=== PATIENT | male | born 1960 | race African-American/Black ===

== ENCOUNTER 2016-12-28 10:11 | Emergency (ER) | payer OTHER ==
[2016-12-28 10:16] VITALS: BP 150/106; PULSE 79; TEMP 97.5; BMI 27.7
--- NOTE | 2016-12-28 11:43 | PDOC ---
History of Present Illness - General Chief Complaint: Pain Stated Complaint: BILATERAL LEG PAIN Time Seen by Provider: 12/28/16 10:32 History Source: Patient Exam Limitations: No Limitations - History of Present Illness Initial Comments: 12/28/16 13:30 12/28/16 13:31 MY CHIEF COMPLAINT: RT. INNER THIGH PAIN FOR 4 DAYS HISTORY OF PRESENT ILLNESS: Pt. is a 56-year-old male with history of hypertension and hyperlipidemia repair of spinal scoliosis here today complaining of right medial proximal thigh pain 4 days. Patient reports pain occurs with any pressure on his right leg and is an 8 out of 10. Patient also reports that is difficult to get in and out of bed due to pain and right medial upper thigh. Patient denies any testicular pain or any bony prominence pain. Patient denies any back pain. 12/28/16 14:56 Timing/Duration: intermittent (WITH WALKING OR ANY PRESSURE ON RT. LEG FOR 4 DAYS) Severity: moderate Associated Symptoms: reports: denies symptoms Past History - Past Medical History Allergies/Adverse Reactions: Allergies Allergy/AdvReac Type Severity Reaction Status Date / Time No Known Allergies Allergy Verified 12/28/16 10:16 Home Medications: Ambulatory Orders Amlodipine Besylate 10 mg PO DAILY 12/28/16 Simvastatin 10 mg PO DAILY 12/28/16 Tamsulosin HCl [Flomax] 0.4 mg PO DAILY 12/28/16 HTN: Yes Hypercholesterolemia: Yes Other medical history: ? BPH - Psycho/Social/Smoking Cessation Hx Anxiety: No Suicidal Ideation: No Smoking History: Never smoked Substance Use Type: None Review of Systems - Review of Systems Able to Perform ROS?: Yes Constitutional: No: Symptoms Reported HEENTM: No: Symptoms Reported Respiratory: No: Symptoms reported Cardiac (ROS): No: Symptoms Reported ABD/GI: No: Symptoms Reported : No: Symptoms Reported Musculoskeletal: Yes: Muscle Pain (RT. UPPER MEDIAL THIGH FOR 4 DAYS ) Integumentary: No: Symptoms Reported Neurological: No: Symptoms reported *Physical Exam - Vital Signs Last Vital Signs Temp Pulse Resp BP Pulse Ox 97.5 F L 79 18 150/106 99 12/28/16 10:13 12/28/16 10:13 12/28/16 10:13 12/28/16 10:13 12/28/16 10:13 - Physical Exam General Appearance: Yes: Appropriately Dressed Respiratory/Chest: positive: Lungs Clear, Normal Breath Sounds. negative: Chest Tender, Respiratory Distress Cardiovascular: positive: Regular Rhythm, Regular Rate, S1, S2 Vascular Pulses: Dorsalis-Pedis (R): 4+ Male Genitalia: positive: normal genitalia. negative: discharge, testicular tenderness, testicular mass, epididymus tender, inguinal hernia, hernia Musculoskeletal: positive: Normal Inspection. negative: CVA Tenderness, CVA Tenderness (R), CVA Tenderness (L), Vertebral Tenderness Extremity: positive: Normal Capillary Refill, Normal Inspection, Tender ( MUSCULAR TENDERNESS RT. UPPER MEDIAL THIGH). negative: Normal Range of Motion ( RT. LEG WITH LATERAL MOVEMENT, FLEXION OF RT. UPPER LEG), Swelling Integumentary: positive: Normal Color Neurologic: positive: Alert, Normal Response, Motor Strength 5/5 (B/L LEGS ), Respond to painful stimul. negative: Numbness, Sensory Deficit Deep Tendon Reflexes: Ankle (R): 4+ (no induration noted ) Medical Decision Making - Medical Decision Making 12/28/16 14:33 Pt. is a 56-year-old male with history of hypertension and hyperlipidemia repair of spinal scoliosis here today complaining of right medial proximal thigh pain 4 days. Patient reports pain occurs with any pressure on his right leg and is an 8 out of 10. Patient also reports that is difficult to get in and out of bed due to pain and right medial upper thigh. Patient denies any testicular pain or any bony prominence pain. r/o carly abnormality rt. hip rt. medial muscle strain proximal thigh 12/28/16 14:57 PLAN: TORADOL 30 MG IM NOW XRAY RT. HIP MILD DEGENERATIVE CHANGES B/L HIPS, SOME SCLEROSIS OF PUBIC BONES AROUND SI JTS WHICH MAY REFLEXT OSTEITIS PUBIS, KATELYN OVERLYING THE LOWER SPINE PARTIALLY VISUALIZED . DR. PINON CRUTCHES GIVEN PT. INSTRUCTED NOT TO EXERCISE OR APPLY PRESSURE TO RT. LEG FOLLOW UP WITH ORTHOPEDIST 12/29/16 11:59 *DC/Admit/Observation/Transfer Diagnosis at time of Disposition: Muscle strain of right thigh Qualifiers: Encounter type: initial encounter Qualified Code(s): S76.911A - Strain of unspecified muscles, fascia and tendons at thigh level, right thigh, initial encounter - Discharge Dispostion Disposition: HOME Condition at time of disposition: Stable - Referrals Referrals: Sahil Payan MD [Primary Care Provider] - Nate Corrigan MD [Staff Physician] - - Patient Instructions Additional Instructions: NO EXERCISE OR APPLYING PRESSURE TO RT. LEG ELEVATE RIGHT LEG MUCH POSSIBLE FOLLOW UP WITH ORTHOPEDIST WITHIN THE NEXT FEW DAYS TAKE ADVIL OR ALEVE INSTRUCTED BY TASTE TESTER FOR PAIN NEEDED USE CRUTCHES FOR AMBULATION RETURN TO EMERGENCY ROOM IF SYMPTOMS WORSEN OR NEW SYMPTOMS DEVELOP PATIENT VOICED UNDERSTANDING OF DISCHARGE INSTRUCTIONS AND ALL QUESTIONS WERE ANSWERED
[2016-12-28] MEDS ORDERED: KETOROLAC TROMETHAMINE 60 MG/2 ML VIAL IM ONE (11:46)
[2016-12-28] MEDS ORDERED: KETOROLAC TROMETHAMINE 30 MG/1 ML VIAL ONE (11:53)
== END 2016-12-28 15:27 | disposition home or self-care (01) ==
LOC: JER 10:11
PROC: 3E0233Z Introduction of Anti-inflammatory into Muscle, Percutaneous Approach (ICD-10-PCS; principal; 2016-12-28)
DX: S76.811A Strain of other specified muscles, fascia and tendons at thigh level, right thigh, initial encounter (principal); X58.XXXA Exposure to other specified factors, initial encounter; Y93.89 Activity, other specified; Y92.018 Other place in single-family (private) house as the place of occurrence of the external cause; I10 Essential (primary) hypertension; E78.00 Pure hypercholesterolemia, unspecified
CPT/HCPCS: 73502-TC-RT; 96372; 99282-25

== ENCOUNTER 2021-03-05 04:46 | Day surgery (SDC) | payer OTHER ==
[2021-03-04 10:41] VITALS: BMI 24.9
[2021-03-05] MEDS ORDERED: LIDOCAINE HCL 1%, 10 MG/ML (20ML VIAL) ONE (10:37)
[2021-03-05] MEDS ORDERED: BUPIVACAINE HCL/PF 0.5% (5MG/ML) 10 ML VIAL ONE (10:38)
[2021-03-05] MEDS ORDERED: BUPIVACAINE HCL/PF 0.25% (2.5MG/ML) 10 ML VIAL ONE (10:39)
[2021-03-05] MEDS ORDERED: ROCURONIUM BROMIDE 50 MG/5 ML SYRINGE ONE (11:40)
[2021-03-05] MEDS ORDERED: PROPOFOL 20 ML ONE ×2 (11:40)
[2021-03-05] MEDS ORDERED: MIDAZOLAM HCL 2 MG/2 ML SINGLE DOSE VIAL ONE (11:41)
[2021-03-05] MEDS ORDERED: SUCCINYLCHOLINE CHLORIDE 200 MG/10 ML SYRINGE ONE (11:41)
[2021-03-05] MEDS ORDERED: ceFAZolin SODIUM 1 GM VIAL IVPB ONE (11:50)
[2021-03-05] MEDS ORDERED: ceFAZolin SODIUM 1 GM VIAL ONE (11:52)
[2021-03-05] MEDS ORDERED: DEXAMETHASONE SOD PHOSPHATE 4 MG/1 ML VIAL ONE (11:52)
[2021-03-05] MEDS ORDERED: LIDOCAINE HCL 1%, 10 MG/ML (20ML VIAL) NR ONE (12:02)
[2021-03-05] MEDS ORDERED: BUPIVACAINE HCL/PF 0.5% (5MG/ML) 10 ML VIAL IJ ONE (12:02)
[2021-03-05] MEDS ORDERED: oxyCODONE HCL 5 MG TABLET PO PRN (12:23)
[2021-03-05] MEDS ORDERED: ONDANSETRON 4 MG/2 ML VIAL IVPUSH PRN (12:23)
[2021-03-05] MEDS ORDERED: LACTATED RINGERS SOLUTION 1,000 ML IV SCH (12:30)
[2021-03-05] MEDS ORDERED: NEOSTIGMINE METHYLSULFATE 0.5 MG/ML - 10 ML MDV ONE (12:38)
[2021-03-05] MEDS ORDERED: GLYCOPYRROLATE 0.2 MG/1 ML VIAL ONE (12:39)
[2021-03-05 15:42] VITALS: BP 108/70; PULSE 67; TEMP 97.8
== END 2021-03-05 15:25 | disposition home or self-care (01) ==
LOC: JASU-SURG 04:46
PROVIDERS: ATTEND Surgery
PROC: 0JB50ZZ Excision of Left Neck Subcutaneous Tissue and Fascia, Open Approach (ICD-10-PCS; 2021-03-05)
PROC: 0JBL0ZZ Excision of Right Upper Leg Subcutaneous Tissue and Fascia, Open Approach (ICD-10-PCS; principal; 2021-03-05 12:30)
DX: D17.0 Benign lipomatous neoplasm of skin and subcutaneous tissue of head, face and neck (principal); D17.23 Benign lipomatous neoplasm of skin and subcutaneous tissue of right leg
CPT/HCPCS: 88304-TC; 94760